=== PATIENT | female | born 1955 | race Caucasian/White ===

== ENCOUNTER 2022-06-07 08:02 | Outpatient (CLI) | payer MEDICARE, SELFPAY ==
[2022-06-07 14:25] LABS: Cholesterol* 176 mg/dL (90-199); HDL Cholesterol* 42 mg/dL (>=50); LDL Cholesterol Calculated 97 mg/dL (<100); Triglycerides* 183 mg/dL (40-149)
[2022-06-07 14:40] LABS: Albumin* 4.6 g/dL (3.3-5.0); Chloride* 103 mmol/L (96-114); Sodium* 136 mmol/L (135-149)
[2022-06-07 14:41] LABS: Potassium* 4.1 mmol/L (3.6-5.1)
[2022-06-07 14:43] LABS: Alkaline Phosphatase* 104 U/L (40-150); Aspartate Amino Transferase* 38 U/L (12-35); Bilirubin Total* 0.6 mg/dL (0.1-1.5); Blood Urea Nitrogen* 15 mg/dL (7-30); Carbon Dioxide* 20 mmol/L (20-32); Creatinine* 0.7 mg/dL (0.5-1.5); Estimated Glomerular Filt Rate 95 ml/min; Total Protein* 7.1 g/dL (6.0-8.3)
[2022-06-07 14:44] LABS: Alanine Aminotransferase* 47 U/L (4-35); Calcium* 9.5 mg/dL (8.4-10.6); Glucose* 148 mg/dL (60-115)
== END 2022-06-07 08:03 | disposition home or self-care (01) ==
PROVIDERS: PCP Physician Assistant Medical; Visit Provider Physician Assistant Medical
DX: E78.5 Hyperlipidemia, unspecified (principal); E03.9 Hypothyroidism, unspecified; I10 Essential (primary) hypertension; R79.89 Other specified abnormal findings of blood chemistry; R73.9 Hyperglycemia, unspecified
CPT/HCPCS: 80053; 80061; 84443

== ENCOUNTER 2022-06-29 07:38 | Outpatient (CLI) | payer MEDICARE, SELFPAY ==
--- OUTSIDE RECORDS SUMMARY | 2022-06-29 07:42 | XMS_ITS | Encounter Summary ---
:1955 Author Organization [facility] Address [address] [place] [address] Care Team Providers Name Role Phone No Ref-Primary, Physician Primary Care Provider [phone] Reason for Visit [facility] (Routine) - Closed Specialty Diagnoses / Procedures Referred By Contact Refer red To Contact Physical Therapist / Diagnoses Low back pain Cervicalgia back pain; neck pain; referral Dr. Marty Link; order to be faxed; [facility]; Lionel; mel [facility] referral exists to 09.22.2020 (ab) Marty Link PA-C Himmerick, Robert, Physical Therapy Procedures SPINE FOLLOW UP [facility] GOSIA MIRANDA [address] [place] [address] [place] [address] Phone: Fax: Referral ID Status Reason Start Date Expiration Date Visits Requ ested Visits Authorized [id number] Closed 11/03/2019 09/22/2020 20 18 Encounter Details Date Type Department Care Team Description 11/03/2019 Therapy Visit [facility] Anais Beauchamp, Bilateral low back pain without sciatica; Rehabilitation Services HARLEY Chowdhury Cervicalgia [place] [facility] [id number] [place] [address] [address] [facility] [place] [address] [phone] Social History Tobacco Use Types Packs/Day Years Used Date Never Assessed Sex Assigned at Date Recorded Not on file documented as of this encounter Progress Notes [place] Beauchamp, PT - 11/03/2019 9:00 AM CST DISCHARGE SUMMARY Annie Serrano was seen 2 times for evaluation and treatment. Patient did not return for further treatment and current status is unknown. Due to short treatment duration, no objective or functional changes were made. Please see goal flow sheet from episode noted date below and initial evaluation for further information. Patient is discharged from therapy and therapy episode is resolved as of 12/11/19. 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
--- OUTSIDE RECORDS SUMMARY | 2022-06-29 07:42 | XMS_ITS | Encounter Summary ---
:1955 Author Organization [facility] Address [address] [place] [address] Care Team Providers Name Role Phone No Ref-Primary, Physician Primary Care Provider [phone] Encounter Details Date Type Department Care Team Description 09/15/2019 Travel Social History Tobacco Use Types Packs/Day Years Used Date Never Assessed Sex Assigned at Date Recorded Not on file documented as of this encounter Plan of Treatment Not on filedocumented as of this encounter Visit Diagnoses Not on filedocumented in this encounter Care Teams Coater Associate Relationship Specialty Start Date End Date No Ref-Primary, Physician PCP - General 09/15/19 documented as of this encounter
--- OUTSIDE RECORDS SUMMARY | 2022-06-29 07:42 | XMS_ITS | Encounter Summary ---
:1955 Author Organization [facility] Address [address] [place] [address] Care Team Providers Name Role Phone No Ref-Primary, Physician Primary Care Provider [phone] Encounter Details Date Type Department Care Team Description 11/03/2019 Travel Social History Tobacco Use Types Packs/Day Years Used Date Never Assessed Sex Assigned at Date Recorded Not on file documented as of this encounter Plan of Treatment Not on filedocumented as of this encounter Visit Diagnoses Not on filedocumented in this encounter Care Teams Varnish Mixer Relationship Specialty Start Date End Date No Ref-Primary, Physician PCP - General 09/15/19 documented as of this encounter
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
--- OUTSIDE RECORDS SUMMARY | 2022-06-29 07:42 | XMS_ITS | Encounter Summary ---
:1955 Author Organization [facility] Address [address] [place] [address] Care Team Providers Name Role Phone No Ref-Primary, Physician Primary Care Provider [phone] Encounter Details Date Type Department Care Team Description 09/17/2019 Travel Social History Tobacco Use Types Packs/Day Years Used Date Never Assessed Sex Assigned at Date Recorded Not on file documented as of this encounter Plan of Treatment Not on filedocumented as of this encounter Visit Diagnoses Not on filedocumented in this encounter Care Teams Pipe Machine Operator Relationship Specialty Start Date End Date No Ref-Primary, Physician PCP - General 09/15/19 documented as of this encounter
--- OUTSIDE RECORDS SUMMARY | 2022-06-29 07:42 | XMS_ITS | Clinical Summary ---
:1955 Author Organization [facility] [place] [address] Care Team Providers Name Role Phone Miriam Darling MD Primary Care Provider [phone] Allergies Active Allergy Reactions Severity Noted Date Comments Penicillins 01/01/2006 Sulfa (Sulfonamide Antibiotics) 6 Medications Medication Sig Dispensed Refills Start Date End Date Status MULTIVITAMIN TAB take 1 tablet by 0 07/11/2009 Active oral route once daily with food FISH OIL 1,000 MG CAP 2 daily 0 07/11/2009 Active CALCIUM 500 MG TAB 0 07/11/2009 Active CPAP For home use: 1 0 07/11/2009 Activ e Pressure: 9 cmH2O with accessories Dx- 327.23 Length of Need: 99 nortriptyline (PAMELOR) 2 oral at 60 capsule 0 05/09/2015 Active 25 mg capsuleIndications: bedtime for 3 Major depressive weeks, then 1 disorder, recurrent cap at bedtime episode, in full for 3 weeks, remission (HC) then stop nortriptyline 50 mg Take 1 capsule 90 capsule 0 01/30/2016 Active capsuleIndications: Major by mouth at depressive disorder, bedtime. recurrent episode, in full remission (HC) nortriptyline (PAMELOR) Take 1 capsule 90 capsule 3 05/18/2016 Active 75 mg capsuleIndications: by mouth at Major depressive bedtime. disorder, recurrent episode, in full remission (HC) citalopram (CELEXA) 10 mg Take 1 tablet by 90 tablet 3 016 Active tabletIndications: Major mouth once depressive disorder, daily. recurrent episode, in full remission (HC) losartan (COZAAR) 100 mg Take 1 tablet by 90 tablet 3 05/18/20 16 Active tabletIndications: mouth once Essential hypertension daily. simvastatin (ZOCOR) 20 mg Take 1 tablet by 90 tablet 3 016 Active tabletIndications: Pure mouth once daily hypercholesterolemia in the evening. 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 Unspecified essential hypertension 04/08/2006 KNEE PAIN 04/14/2002 MIGRAINE - NOT INTRACTABLE 11/14/2001 EXCESSIVE MENSTRUATION 04/23/2001 DEPRESSIVE DISORDER, RECUR, FULL REMISSION 04/23/2001 HYPERCHOLESTEROLEMIA, PURE 07/18/2000 Resolved Problems Problem Noted Date Resolved Date ELEVATED BLOOD PRESSURE WITHOUT DIAGNOSIS OF HYPERTENSION 04/08/2006 Major depressive disorder, single episode in full remission 04/19/2008 Overview: 1995 Immunizations Name Administration Dates Next Due AMB Influenza, IIV3 (Age >=3 06/26/2013, 06/24/2012, 011, years)(Flu Clinic Only) 07/13/2010, 06/27/2009, 07/14/2008 AMB Influenza, IIV4 PF (=>6 mos 06/08/2014 Flulaval,Fluzone Fluarix)(Flu Clinic Only) Influenza A (H1N1), Inactivated (Age 0110/19/2009 >=3 Years) Influenza, IIV3 (Age >=3 years) 08/11/2007, 07/26/2006, 06/24, 07/09/2003, 07/08/2002, 07/23/2001 Influenza, IIV4 05/18/2016, 05/09/2015 Td (Age >=7 Years) 04/05/2005, 12/28/2003, 09/23/1993 Tdap 05/05/2012 Family History Medical History Relation Name Comments Cancer Father Liver and stomac h Other Father Renal calculi, g laucoma Arthritis Mother Diabetes Mother Hypertension Mother Other Mother Renal calculi, r enal failure on dialysis Hyperlipidemia Other 1 Grandparents, si blings Other Other 2 [place]'s in a grandparent Other Other 3 renal calculi in siblings Cancer-breast Sister Relation Name Status Comments Father Mother Other 1 Other 2 Other 3 Sister Social History Tobacco Use Types Packs/Day Years Used Date Never Smoker 0 Smokeless Tobacco: Never Used Tobacco Cessation: Counseling Given: Yes Comments: never Alcohol Use Standard Drinks/Week Comments Yes 0 (1 standard drink = 0.6 oz pure alcoho l) 2-3 drinks per week Alcohol Habits Answer Date Recorded How often do you have a drink containing alcohol? Not asked How many drinks containing alcohol do you have on a Not aske d typical day when you are drinking? How often do you have six or more drinks on one Not asked occasion? Comment: 2-3 drinks per week 05/18/2016 Sex Assigned at Date Recorded Not on file Obstetrics History Para Term AB IAB SAB Ectopic Multiple Living Live Births 3 3 3 0 0 6 3 Date Outcome GA Total Labor/2nd/3rd Weight Sex Delivery Anes PTL Ramonita A 1 A5 Name Clin Labor 12/06 Term M Vag Carmela Ld /1980 ng 10/17 Term F Vag Carmela Soraya /1982 ng 05/25 Term M Vag Carmela [place] /1986 ng Last Filed Vital Signs Vital Sign Reading Time Taken Comments Blood Pressure 135/83 05/18/2016 7:42 AM CDT Pulse 71 05/18/2016 7:42 AM CDT Temperature 36.2 ??C (97.2 ??F) 08/04/2004 12:00 AM DRUG ROOM CLERK Respiratory Rate 16 06/14/2004 12:00 AM CDT Oxygen Saturation 100% 05/18/2016 7:42 AM CDT Inhaled Oxygen Concentration - - Weight 71.1 kg (156 lb 12.8 oz) 05/18/2016 7:42 AM CDT Height 164.5 cm (5' 4.76) 05/18/2016 7:42 AM CDT Body Mass Index 26.28 05/18/2016 7:42 AM CDT Plan of Treatment Health Maintenance Due Date Last Done Comments COVID-19 vaccine series (#1) [birth year]14/1956 Zoster (shingles) series for age 1007/15/2005 50+ (1 of 2) BMI (ht and wt on same day) for 05/18/2017 05/18/2016 age 18+ Depression screening for age 12+ 05/18/2017 05/18/2016, 05/2016 Colonoscopy through age 75 06/06/2017 06/06/2007, 5 DEXA/DXA scan for age 65+ 2020 04/22/2007 Pneumococcal series for age 65+ (1 2020 - PCV) Mammogram for age 45-75 11/11/2020 11/11/2019, 11/10/2018, 11/07/2017, Additional history exists Lipids for age 45-75 05/18/2021 05/18/2016, 05/09/2015, 05/07/2014, Additional history exists Tetanus booster 05/05/2022 05/05/2012, 04/05/2005, 12/28/2003, Additional history exists Influenza for age 65+ 05/24/2022 05/18/2016, 05/09/2015, 06/08/2014, Additional history exists Tdap Completed 05/05/2012 Hepatitis C screening for age Completed 05/09/2015 18-79 Results Not on filefrom Last [address] [facility] (Home) TRL [phone] [place], [place] (Work) [address] Care Teams Compotype Operator Relationship Specialty Start Date End Date Miriam Darling MD PCP - General Family Practice 10/17/16 [address] [place] [address]
--- OUTSIDE RECORDS SUMMARY | 2022-06-29 07:42 | XMS_ITS | Clinical Summary ---
:1955 Author Organization [facility] Address [address] [place] [address] Care Team Providers Name Role Phone No Ref-Primary, Physician Primary Care Provider [phone] Resolved Problems Problem Noted Date Resolved Date Bilateral low back pain without sciatica 09/21/2019 12/11/2019 Cervicalgia 09/21/2019 12/11/2019 Social History Tobacco Use Types Packs/Day Years Used Date Never Assessed Sex Assigned at Date Recorded Not on file Plan of Treatment Health Maintenance Due Date Last Done Comments ADVANCE CARE PLANNING 1955 ANNUAL REVIEW OF HM ORDERS 1955 CT COLONOGRAPHY 1955 DEXA 1955 FIT-DNA (Cologuard) 1955 FIT 1955 FLEX SIG 1955 COVID-19 Vaccine (#1) 01[birth year]14/1956 COLONOSCOPY 1965 COLORECTAL CANCER SCREENING 1965 HEPATITIS C SCREENING 1973 DTAP/TDAP/TD IMMUNIZATION 1980 (1 - Tdap) LIPID 2000 ZOSTER IMMUNIZATION (1 of 2005 2) FALL RISK ASSESSMENT 2020 MEDICARE ANNUAL WELLNESS 2020 VISIT Pneumococcal Vaccine: 65+ 2020 Years (1 - PCV) MAMMO SCREENING 11/10/2020 11/10/2018 PHQ-2 (once per calendar 09/23/2021 year) INFLUENZA VACCINE (#1) 2022 05/18/2016, 05/09/2015, 06/08/2014, Additional history exists HEPATITIS B IMMUNIZATION Aged Out No long er eligible based on patient 's age to complete this topic IPV IMMUNIZATION Aged Out No longer eligi ble based on patient 's age to complete this topic MENINGITIS IMMUNIZATION Aged Out No longe r eligible based on patient 's age to complete this topic Insurance Payer Benefit Plan / Subscriber ID Effective Dates Phone Addre ss Type Group [employer] INDIVIDUAL [id number] 2019-Prese [phone] [address] [place] [address] Care Teams Welfare Investigator Relationship Specialty Start Date End Date No Ref-Primary, Physician PCP - General 09/15/19
--- NOTE | 2022-06-29 11:17 | W.ANESCHARGE ---
Anesthesia Charges Start Date/Time Anesthesia Start Date: 06/29/22 Anesthesia Start Time: 08:26 Stop Date/Time Anesthesia Stop Date: 06/29/22 Anesthesia Stop Time: 09:15 Summary Emergency: No
--- NOTE | 2022-06-29 11:57 | W.ANESCHARGE ---
Anesthesia Charges Start Date/Time Anesthesia Start Date: 06/29/22 Anesthesia Start Time: 08:26 Stop Date/Time Anesthesia Stop Date: 06/29/22 Anesthesia Stop Time: 09:15 Summary Emergency: No
== END 2022-06-29 07:39 | disposition home or self-care (01) ==
LOC: OP CLINIC 07:40
PROVIDERS: PCP Physician Assistant Medical; Visit Provider Internal Medicine
DX: Z12.11 Encounter for screening for malignant neoplasm of colon (principal); K57.30 Diverticulosis of large intestine without perforation or abscess without bleeding; Z86.010 Personal history of colon polyps
CPT/HCPCS: 00812; 45378; J2405; J2704

== ENCOUNTER 2023-01-03 15:25 | Outpatient (CLI) | payer MEDICARE, SELFPAY ==
--- NOTE | 2023-01-03 15:40 | CRLHL7_ITS ---
For Patients: As a result of the Century Cures Act, medical imaging exams and procedure reports are released immediately into your electronic medical record. You may view this report before your referring provider. If you have questions, please contact your health care provider. BILATERAL SCREENING MAMMOGRAM WITH COMPUTER-AIDED DETECTION AND TOMOSYNTHESIS TECHNIQUE: CC and MLO views were obtained. These mammographic images have been obtained using full-field digital technique. These mammographic images were interpreted with the benefit of computer-aided detection. Breast Tomosynthesis was used in this interpretation. COMPARISON FILM: 12/18/21, 11/11/20, 11/11/19. FINDINGS: There are scattered areas of fibroglandular density IMPRESSION: There is no radiographic evidence for malignancy. ASSESSMENT: BI-RADS Category 1: Negative RECOMMENDATION: Routine screening mammogram in 1 year. A lay language report of this examination will be provided to the patient. Florin Abebe M.D. Diagnostic Radiologist [email or web address] [place]/Dictated by: Florin Abebe MD @ 01/04/2023 8:25:00 AM (Electronically Signed)
== END 2023-01-03 15:26 | disposition home or self-care (01) ==
LOC: MAMMO 15:26
PROVIDERS: PCP Physician Assistant Medical; Visit Provider Physician Assistant Medical
DX: Z12.31 Encounter for screening mammogram for malignant neoplasm of breast (principal)
CPT/HCPCS: 77063; 77067

== ENCOUNTER 2023-06-13 08:29 | Outpatient (CLI) | payer MEDICARE, SELFPAY | END 2023-06-13 08:30 | disposition home or self-care (01) | LOC: NFLDREF 06-17 13:12 | PROVIDERS: PCP Physician Assistant Medical; Referring Provider Physician Assistant Medical; Visit Provider Physician Assistant Medical | DX: E03.9 Hypothyroidism, unspecified (principal); E78.2 Mixed hyperlipidemia; I10 Essential (primary) hypertension; R73.03 Prediabetes; R79.89 Other specified abnormal findings of blood chemistry | CPT/HCPCS: 80053; 80061; 84443 ==

== ENCOUNTER 2024-01-16 13:13 | Outpatient (CLI) | payer MEDICARE, SELFPAY ==
--- OUTSIDE RECORDS SUMMARY | 2024-01-16 13:16 | XMS_ITS | Clinical Summary ---
Author Name Unknown Organization [facility] Address [address] [place] [address] Care Team Providers Care Multimedia Developer Name Role Phone No Ref-Primary, Physician Primary Care Provider Resolved Problems Problem Noted Date Diagnosed Date Resolved Date Bilateral low back pain without sciatica 09/21/2019 12/11/2019 Cervicalgia 09/21/2019 12/11/2019 Social History Tobacco Use Types Packs/Day Years Used Date Smoking Tobacco: Never Assessed Sex and Gender Information Value Date Recorded Sex Assigned at Not on file Gender Identity Not on file Sexual Orientation Not on file Plan of Treatment Not on file Care Teams Multimedia Developer Relationship Specialty Start Date End Date No Ref-Primary, Physician PCP - General 09/15/19
--- OUTSIDE RECORDS SUMMARY | 2024-01-16 13:16 | XMS_ITS | Clinical Summary ---
Author Name Unknown Organization [facility] Address [employer], [place] [address] Care Team Providers Care Supervisor Byproducts Name Role Phone Miriam Darling MD Primary Care Provider Allergies Active Allergy Reactions Criticality Noted Date Comments Penicillins 01/01/2006 Sulfa (Sulfonamide Antibiotics) 12/22 Medications Medication Sig Dispensed Refills Start Date End Date Status MULTIVITAMIN TAB take 1 tablet by oral route once daily with food 0 9 Active FISH OIL 1,000 MG CAP 2 daily 0 9 Active CALCIUM 500 MG TAB 0 9 Active CPAP For home use: Pressure: 9 cmH2O with accessories Dx- 327.23 Length of Need: 99 1 0 9 Active nortriptyline (PAMELOR) 25 mg capsuleIndications:Major depressive disorder, recurrent episode, in full remission (HC) 2 oral at bedtime for 3 weeks, then 1 cap at bedtime for 3 weeks, then stop 60 capsule 0 5 Active nortriptyline 50 mg capsuleIndications:Major depressive disorder, recurrent episode, in full remission (HC) Take 1 capsule by mouth at bedtime. 90 capsule 0 6 Active nortriptyline (PAMELOR) 75 mg capsuleIndications:Major depressive disorder, recurrent episode, in full remission (HC) Take 1 capsule by mouth at bedtime. 90 capsule 3 6 Active citalopram (CELEXA) 10 mg tabletIndications:Major depressive disorder, recurrent episode, in full remission (HC) Take 1 tablet by mouth once daily. 90 tablet 3 6 Active losartan (COZAAR) 100 mg tabletIndications:Essenti al hypertension Take 1 tablet by mouth once daily. 90 tablet 3 6 Active simvastatin (ZOCOR) 20 mg tabletIndications:Pure hypercholesterolemia Take 1 tablet by mouth once daily in the evening. 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 Unspecified essential hypertension 04/08/2006 KNEE PAIN 04/14/2002 MIGRAINE - NOT INTRACTABLE 11/14/2001 EXCESSIVE MENSTRUATION 04/23/2001 DEPRESSIVE DISORDER, RECUR, FULL REMISSION 04/23 HYPERCHOLESTEROLEMIA, PURE 07/18/2000 Resolved Problems Problem Noted Date Diagnosed Date Resolved Date ELEVATED BLOOD PRESSURE WITH OUT DIAGNOSIS OF HYPERTENSION 04/14/2002 04/08/2006 Major depressive disorder, s gia episode in full remission 04/19/2008 Overview: 1995 Immunizations Name Administration Dates Next Due AMB Influenza, IIV3 (Age >=3 years)(Flu Clinic Only) 06/26/2013,06/24/2012,07/06/2011,2009,06/27/2009,07/14/2008 AMB Influenza, IIV4 PF (=>6 mos Flulaval,Fluzone Fluarix)(Flu Clinic Only) 06/08/2014 Influenza A (H1N1), Inactiva balbir (Age >=3 Years) 10/19/2009 Influenza, IIV3 (Age >=3 years) 08/11/20 07,07/26/2006,07/17/2005,2002,07/08/2002,07/23/2001 Influenza, IIV4 05/18/2016,05/09/2015 Td (Age >=7 Years) 04/05/2005,12/28/2003, 994 Tdap 05/05/2012 Family History Medical History Relation Name Comments Cancer Father Liver and stoma ch Other Father Renal calculi, glaucoma Arthritis Mother Diabetes Mother Hypertension Mother Other Mother Renal calculi, renal failure on dialysis Hyperlipidemia Other 1 Grandparents, siblings Other Other 2 Tad's in a grandparent Other Other 3 renal calculi i n siblings Cancer-breast Sister Relation Name Status Comments Father Mother Other 1 Other 2 Other 3 Sister Social History Tobacco Use Types Packs/Day Years Used Date Smoking Tobacco: Never Smokeless Tobacco: Never Tobacco Cessation:Counseling Given: Yes Comments:never Alcohol Use Standard Drinks/Week Comments Yes 0 (1 standard drink = 0.6 oz pur e alcohol) 2-3 drinks per week Sex and Gender Information Value Date Recorded Sex Assigned at Not on file Gender Identity Not on file Sexual Orientation Not on file Obstetrics History Para Term AB IAB SAB Ectopic Multiple Livin g Live Births 3 3 3 0 0 6 3 Date Outcome GA Total Labor Labor//3rd Weight Sex Delivery Anes PTL Ramonita A1 A5 Name Cl in 12/06 Term M Vag Carmela ng Ld 10/17 Term F Vag Carmela ng Soraya 05/25 Term M Vag Carmela ng [place] Last Filed Vital Signs Vital Sign Reading Time Taken Comments Blood Pressure 135/83 05/18/2016 7:42 AM CDT Pulse 71 05/18/2016 7:42 AM CDT Temperature 36.2 ??C (97.2 ??F) 08/04/2004 1 2:00 AM ACCOUNTING CONSULTANT Respiratory Rate 16 06/14/2004 12:0 0 AM CDT Oxygen Saturation 100% 05/18/2016 7:42 AM CDT Inhaled Oxygen Concentration - - Weight 71.1 kg (156 lb 12.8 oz) 05/18/2016 7:42 AM CDT Height 164.5 cm (5' 4.76) 05/18/2016 7:42 AM CD T Body Mass Index 26.28 05/18/2016 7:42 AM CDT Plan of Treatment Health Maintenance Due Date Last Done Comments Zoster (shingles) series for age 50+ (1 of 2) 2005 BMI (ht and wt on same day) for age 18+ 05/18/2017 05/18/2016 Depression screening for age 12+ 05/18/2017 05/18/20 16, 01/30/2016 Colonoscopy through age 75 06/06/2017 06/06/2007, DEXA/DXA scan for age 65+ 2020 04/22/2007 Pneumococcal series for age 65+ (1 of 1 - PCV) 2020 Mammogram for age 45-75 11/11/2020 11/11/19 20, 11/10/2018, 11/07/2017, Additional history exists Lipids for age 45-75 05/18/2021 05/18/2016, 05/09/2015, 05/07/2014, Additional history exists Tetanus booster 05/05/2022 05/05/2012, 03/23, 12/28/2003, Additional history exists COVID-19 vaccine series ( season) 2023 Influenza for age 65+ 05/24/2024 05/18/2016 , 05/09/2015, 06/08/2014, Additional history exists Tdap Completed 05/05/2012 Hepatitis C screening for ag e 18-79 Completed 05/09/2015 Procedures Procedure Name Priority Date/Time Associated Diagnosis Comments XR MAMMO JURGEN BILAT SCREEN Routine 11/11/2019 1:19 PM ACCOUNTING CONSULTANT Visit for screening mammogram LIPID PANEL W REFLEX MEASURED LDL Routine 05/18/2016 8:15 AM CDT HYPERCHOLESTEROLEMIA , PURE ANTI HCV Routine 05/09/2015 9:45 AM CDT Need for hepatitis C screening test XR DXA BONE DENSITY 2 SITES AXIAL Routine 04/22/2007 3:04 PM CDT Screening Osteoporosis COLONOSCOPY SCREENING Routine 04/05/2005 12:37 PM CDT from Last 3 Months or Most Recently Relevant to Health Maintenance Results * XR MAMMO JURGEN BILAT SCREEN (11/11/2019 1:19 PM ACCOUNTING CONSULTANT) Anatomical Region Laterality Modality BREASTS, Breast Left, Breast Right Bilateral Mammography Impressions 11/12/2019 4:08 PM ACCOUNTING CONSULTANT ??There is no radiographic evidence for malignancy. ??Recommend annual mammograms. A lay language report of this examination will be provided to the patient. MAMMOGRAM ASSESSMENT: ??ACR 1 Negative Narrative 11/12/2019 4:08 PM ACCOUNTING CONSULTANT XR MAMMO JURGEN BILAT SCREEN [[id number]] CLINICAL HISTORY: ??This is an asymptomatic 64 y.o. patient. INDICATION FOR EXAM: Mammogram Screening. TECHNIQUE: CC & MLO views were obtained. ??This digital study was evaluated with the assistance of Computer-Aided Detection. Breast Tomosynthesis was used in interpretation. COMPARISON FILM: Yes 11/10/18 [facility] 11/07/17 [facility] FINDINGS: ??Mammographically, the breast tissue has scattered fibroglandular densities. ??There are no dominant masses, suspicious micro calcifications or areas of architectural distortion. Marty Link PA-C MAMMO * (ABNORMAL) LIPID PANEL W REFLEX MEASURED LDL (05/18/2016 8:15 AM CDT) CHOLESTEROL,TOTAL 192 100 - 199 mg/dL 05/18/2016 4:16 PM CDT [facility] TRIGLYCERIDES 106 <150 mg/dL 05/18/2016 4:16 PM CDT [facility] HDL CHOLESTEROL 42 >40 mg/dL 05/18/2016 4:16 PM CDT [facility] NON-HDL CHOLESTEROL 150(H) <145 mg/dl 05/18/2016 4:16 PM CDT [facility] CHOL/HDL RATIO 4.57(H) <4.50 05/18/2016 4:16 PM CDT [facility] LDL CHOLESTEROL 129 <=130 mg/dL 05/18/2016 4:16 PM CDT [facility] PATIENT STATUS FASTING 05/18/2016 4:16 PM CDT [facility] Blood BLOOD SPECIMEN / Unknown Venipuncture / Unknown 05/18/2016 8:15 AM CDT 05/18/2016 8:15 AM CDT Miriam Darling MD CHEMISTRY [facility] [address] [place] [address], [place] * ANTI HCV [19120.2] (05/09/2015 9:45 AM CDT) HEPATITIS C ANTIBODY Non-Reacti ve Non-Reacti ve 05/09/2015 5:29 PM CDT [facility] Blood specimen (specimen) BLOOD SPECIMEN / Unknown Venipuncture / Unknown 05/09/2015 9:45 AM CDT 05/09/2015 9:45 AM CDT Narrative [facility] - 05/09/2015 5:29 PM CDT Antibodies to HCV not detected; does not exclude the possibility of exposure to HCV. Nicol Casillas MD SEND OUTS Performing Organization Address City/[facility]/ZIP Co de Phone Number [facility] [address] [place] [address], [place] * XR DEXA BONE DENSITY 2 SITES (04/22/2007 3:04 PM CDT) Anatomical Region Laterality Modality Spine, HIPS, HIPL, HIPR Other 04/22/2007 3:04 PM CDT Narrative 04/24/2007 1:54 PM CDT Please see scanned document for results of this study. Procedure Note Payton Burnett D - 05/07/2007 Please see scanned document for results of this study. Nicol Casillas MD DEXA * COLONOSCOPY SCREENING (04/05/2005 12:37 PM CDT) COLONOSCOPY Recommended 04/05/2005 12:3 7 PM CDT Narrative 04/07/2005 4:40 PM CDT Ordered by an unspecified provider. Other Clinical Staff GI PROCEDURE ORD from Last 3 Months or Most Recently Relevant to Health Maintenance Care Teams Supervisor Byproducts Relationship Specialty [place] [address] [place] [address] PCP - General Family Practice 10/17/16
--- OUTSIDE RECORDS SUMMARY | 2024-01-16 13:16 | XMS_ITS | Referral Summary ---
Author Name Unknown Organization [place] Address [address] [place] [address] Care Team Providers Care Tumbling Barrel Painter Name Role Phone No Ref-Primary, Physician Primary [...] of Treatment Not on file Care Teams Tumbling Barrel Painter Relationship Specialty Start Date End Date No Ref-Primary, Physician PCP - General 09/15/19
--- NOTE | 2024-01-16 14:00 | MM_ITS ---
Patient: SLOAN AMIN Facility:?[facility] Patient ID:?[id number] Site Patient ID:?[id number]. Site :?[id number] Study:?XRay-Breast Bilateral 3D W/CAD-01/16/2024 2:01:43 PM Ordering Physician:BECKY LINDA Final Report: BILATERAL SCREENING MAMMOGRAM WITH COMPUTER-AIDED DETECTION AND TOMOSYNTHESIS TECHNIQUE: CC and MLO views were obtained. These mammographic images have been obtained using full-field digital technique. These mammographic images were interpreted with the benefit of computer-aided detection. Breast Tomosynthesis was used in this interpretation. COMPARISON FILM: 01/03/23, 12/08/21, 11/11/20. FINDINGS: There are scattered areas of fibroglandular density. IMPRESSION: There is no radiographic evidence for malignancy. ASSESSMENT: BI-RADS Category 1: Negative RECOMMENDATION: Routine screening mammogram in 1 year. A lay language report of this examination will be provided to the patient. Florin Abebe M.D. Diagnostic Radiologist [facility] [email or web address] DSM/sp R& Transcribed: 3:06 p.m. SP/Dictated by: Florin Abebe MD @ 01/20/2024 11:54:00 AM Signed by:?Florin Abebe MD @01/20/2024 3:21:01 PM (Electronic Signature)
== END 2024-01-16 13:14 | disposition home or self-care (01) ==
LOC: MAMMO 13:14
PROVIDERS: PCP Physician Assistant Medical; Visit Provider Physician Assistant Medical
DX: Z12.31 Encounter for screening mammogram for malignant neoplasm of breast (principal)
CPT/HCPCS: 77063; 77067

== ENCOUNTER 2024-01-16 13:36 | Outpatient (CLI) | payer MEDICARE, SELFPAY ==
--- NOTE | 2024-01-16 13:30 | XR_ITS ---
Patient: SLOAN AMIN Facility:?[facility] Patient ID:?[id number] Site Patient ID:?[id number]. Site :?[id number] Study:?DEXA-Bone Density -01/16/2024 2:08:08 PM Ordering Physician:ALEXEI Final Report: DXA BONE MINERAL DENSITY STUDY Reason for exam: Asymptomatic menopausal state. Current height (in): 65.0. Weight (lb): 195.0. Menopause age: 50. Ethnicity: White. 1. Have you had a previous hip or vertebral fracture? No. 2. Have you had any fractures during your adult life which did not result from significant trauma (e.g., auto accident)? No. 3. Did either of your parents have a hip fracture? No. 4. Do you smoke? No. 5. Have you ever taken Glucocorticoids? No. 6. Do you have rheumatoid arthritis? No. 7. Do you have secondary osteoporosis? No. 8. Do you drink 3 or more alcoholic drinks per day? No. 9. Are you being treated for osteoporosis? No. 10. Have you ever taken any of the following medications: Actonel, Evista, Fosamax, Miacalcin, Reclast, Boniva, Forteo, HRT (i.e. estrogen/hormone therapy), Protelos, Prolia, Vitamin D, Calcium, other ? please specify. ANSWER: Yes, vitamin D, calcium. 11. Do you have any of the following medical conditions: Anorexia or bulimia, asthma or emphysema, end stage renal disease, hyperparathyroidism, any seizure disorders, cancer, inflammatory bowel diseases, hysterectomy, other ? please specify. ANSWER: No. 12. What was your maximum height (inches)? 66. 13. Do you perform weight bearing exercise regularly? No. 14. Do you regularly consume dairy products? Yes. 15. Do you drink caffeinated beverages? Yes. 16. At what age did your period start? 14. 17. Are you premenopausal? No. 18. How many full term pregnancies have you had? 3. 19. Have you ever missed your period for more than 6 months in a row (not including or menopause)? No. TECHNIQUE: Bone mineral density study was performed using the [employer]. FINDINGS: The results of the study expressed as bone mineral density (BMD) are as follows: Lumbar spine L1 to L4: BMD: 0.843 g/cm2. T-score: -1.9. Z-score: 0.1. Neck Left: BMD: 0.646 g/cm2. T-score: -1.8. Z-score: -0.1. Right: BMD: 0.637 g/cm2. T-score: -1.9. Z-score: -0.2. Total Left: BMD: 0.827 g/cm2. T-score: -0.9. Z-score: 0.5. Right: BMD: 0.861 g/cm2. T-score: -0.7. Z-score: 0.8. IMPRESSION: Osteopenia. *Comparison exams done prior to 02/2020 were performed on different unit, [employer]. COMPARISON: Compared with scan of 06/14/2021, the bone mineral density has decreased by 3.1 percent at the spine and increased by 0.6 percent at the hip. FRAX 10-year Fracture Risk Major Osteoporotic Fracture: 10 percent Hip Fracture: 1.6 percent Reported Risk Factors: [place] () Neck BMD=0.637, BMI=32.4 ROE ABRAHAM M.D. MICHAELI:kate D& [email or web address] be/Dictated by: Roe Abraham MD @ 01/17/2024 12:53:00 PM Signed by:?Roe Abraham MD @01/22/2024 4:16:04 PM (Electronic Signature)
--- OUTSIDE RECORDS SUMMARY | 2024-01-16 13:37 | XMS_ITS | Clinical Summary ---
Author Name Unknown Organization [facility] Address [place], [place] [address] Care Team Providers Care Supervisor Blood Name Role Phone Miriam Darling MD Primary [...] Other 1 Grandparents, siblings Other Other 2 Bath's in a grandparent Other Other 3 renal [...] ??C (97.2 ??F) 08/04/2004 1 2:00 AM BOTTLER Respiratory Rate 16 06/14/2004 12:0 0 AM [...] JURGEN BILAT SCREEN Routine 11/11/2019 1:19 PM BOTTLER Visit for screening mammogram LIPID PANEL W [...] MAMMO JURGEN BILAT SCREEN (11/11/2019 1:19 PM BOTTLER) Anatomical Region Laterality Modality BREASTS, Breast Left, Breast Right Bilateral Mammography Impressions 11/12/2019 4:08 PM BOTTLER ??There is no radiographic evidence for malignancy. ??Recommend annual mammograms. A lay language report of this examination will be provided to the patient. MAMMOGRAM ASSESSMENT: ??ACR 1 Negative Narrative 11/12/2019 4:08 PM BOTTLER XR MAMMO JURGEN BILAT SCREEN [[id number]] CLINICAL HISTORY: ??This is an asymptomatic 64 y.o. patient. INDICATION FOR EXAM: Mammogram Screening. TECHNIQUE: CC & MLO views were obtained. ??This digital study was evaluated with the assistance of Computer-Aided Detection. Breast Tomosynthesis was used in interpretation. COMPARISON FILM: Yes 11/10/18 [facility] 11/07/17 [facility] FINDINGS: ??Mammographically, the breast tissue has scattered fibroglandular densities. ??There are no dominant masses, suspicious micro calcifications or areas of architectural distortion. Marty Link PA-C MAMMO * (ABNORMAL) LIPID PANEL W REFLEX MEASURED LDL (05/18/2016 8:15 AM CDT) CHOLESTEROL,TOTAL 192 100 - 199 mg/dL 05/18/2016 4:16 PM CDT [facility] TRIGLYCERIDES 106 <150 mg/dL 05/18/2016 4:16 PM CDT [facility] HDL CHOLESTEROL 42 >40 mg/dL 05/18/2016 4:16 PM CDT [facility] NON-HDL CHOLESTEROL 150(H) <145 mg/dl 05/18/2016 4:16 PM CDT [facility] CHOL/HDL RATIO 4.57(H) <4.50 05/18/2016 4:16 PM CDT [facility] LDL CHOLESTEROL 129 <=130 mg/dL 05/18/2016 4:16 PM CDT [facility] PATIENT STATUS FASTING 05/18/2016 4:16 PM CDT [facility] [employer] Blood BLOOD SPECIMEN / Unknown Venipuncture / Unknown 05/18/2016 8:15 AM CDT 05/18/2016 8:15 AM CDT Miriam Darling MD [facility] [address] [place] [address], [place] * ANTI HCV [[id number]] (05/09/2015 9:45 AM CDT) HEPATITIS C ANTIBODY Non-Reacti ve Non-Reacti ve 05/09/2015 5:29 PM CDT [facility] Blood specimen (specimen) BLOOD SPECIMEN / Unknown Venipuncture / Unknown 05/09/2015 9:45 AM CDT 05/09/2015 9:45 AM CDT Narrative [facility] - 05/09/2015 5:29 PM CDT Antibodies to HCV not detected; does not exclude the possibility of exposure to HCV. Nicol Casillas MD SEND OUTS Performing Organization Address City/[facility]/ZIP Co de Phone Number [facility] [address] [place] [address], [place] * XR DEXA BONE DENSITY 2 [...] Relevant to Health Maintenance Care Teams Supervisor Blood Relationship Specialty [place] [address] [place] [address] PCP - General Family Practice 10/17/16
--- OUTSIDE RECORDS SUMMARY | 2024-01-16 13:37 | XMS_ITS | Clinical Summary ---
Author Name Unknown Organization [place] Address [address] [place] [address] Care Team Providers Care Physician Practice Manager Name Role Phone No Ref-Primary, Physician Primary [...] of Treatment Not on file Care Teams Physician Practice Manager Relationship Specialty Start Date End Date No Ref-Primary, Physician PCP - General 09/15/19
--- OUTSIDE RECORDS SUMMARY | 2024-01-16 13:37 | XMS_ITS | Referral Summary ---
Author Name Unknown Organization [place] Address [address] [place] [address] Care Team Providers Care Network Manager Name Role Phone No Ref-Primary, Physician [...] of Treatment Not on file Care Teams Network Manager Relationship Specialty Start Date End Date No Ref-Primary, Physician PCP - General 09/15/19
== END 2024-01-16 13:37 | disposition home or self-care (01) ==
LOC: RAD 13:36
PROVIDERS: PCP Physician Assistant Medical; Visit Provider Physician Assistant Medical
DX: Z12.31 Encounter for screening mammogram for malignant neoplasm of breast (principal); Z78.0 Asymptomatic menopausal state; M85.89 Other specified disorders of bone density and structure, multiple sites
CPT/HCPCS: 77063; 77067; 77080

== ENCOUNTER 2024-06-25 09:02 | Outpatient (CLI) | payer MEDICARE, SELFPAY ==
--- OUTSIDE RECORDS SUMMARY | 2024-06-26 08:43 | XMS_ITS | Referral Summary ---
Author Organization [place] Address [address] [place] [address]. [place] [address] Care Team Providers Care Autocad Electrical Designer Name Role Phone No Ref-Primary, Physician Primary [...] of Treatment Not on file Care Teams Autocad Electrical Designer Relationship Specialty Start Date End Date No Ref-Primary, Physician PCP - General 09/15/19
--- OUTSIDE RECORDS SUMMARY | 2024-06-26 08:43 | XMS_ITS | Clinical Summary ---
Author Organization [facility] Address [place], [place] [address] Care Team Providers Care Turn Machine Operator Name Role Phone Miriam Darling MD Primary [...] s gia episode in full remission 04/19/2008 Overview (04/19/2008): 1995 Immunizations Name Administration Dates Next Due [...] Other 1 Grandparents, siblings Other Other 2 Ethan's in a grandparent Other Other 3 renal [...] 6 3 Date Outcome GA Total Labor Labor/2nd/3rd Weight Sex Type Anes PTL Ramonita A1 A5 Name Clin 12/06 Term M Vag Living Ld 10/17 Term F Vag Living Soraya 05/25 Term M Vag Living Linwood Last Filed Vital Signs Vital Sign Reading Time Taken Comments Blood Pressure 135/83 05/18/2016 7:42 AM CDT Pulse 71 05/18/2016 7:42 AM CDT Temperature 36.2 ??C (97.2 ??F) 08/04/2004 1 2:00 AM FURNACE WORKER Respiratory Rate 16 06/14/2004 12:0 0 AM [...] history exists COVID-19 vaccine series ( season) 2024 Influenza for age 65+ 05/24/2024 05/18/2016 , 05/09/2015, 06/08/2014, Additional history exists Tdap Completed 05/05/2012 Hepatitis C screening for ag e 18-79 Completed 05/09/2015 Procedures Procedure Name Priority Date/Time Associated Diagnosis Comments XR MAMMO JURGEN BILAT SCREEN Routine 11/11/2019 1:19 PM FURNACE WORKER Visit for screening mammogram LIPID PANEL W [...] MAMMO JURGEN BILAT SCREEN (11/11/2019 1:19 PM FURNACE WORKER) Anatomical Region Laterality Modality BREASTS, Breast Left, Breast Right Bilateral Mammography Impressions 11/12/2019 4:08 PM FURNACE WORKER ??There is no radiographic evidence for malignancy. ??Recommend annual mammograms. A lay language report of this examination will be provided to the patient. MAMMOGRAM ASSESSMENT: ??ACR 1 Negative Narrative 11/12/2019 4:08 PM FURNACE WORKER XR MAMMO JURGEN BILAT SCREEN [[id number]] CLINICAL HISTORY: ??This is an asymptomatic 64 y.o. patient. INDICATION FOR EXAM: Mammogram Screening. TECHNIQUE: CC & MLO views were obtained. ??This digital study was evaluated with the assistance of Computer-Aided Detection. Breast Tomosynthesis was used in interpretation. COMPARISON FILM: Yes 11/10/18 [facility] 11/07/17 [facility] FINDINGS: ??Mammographically, the breast tissue has scattered fibroglandular densities. ??There are no dominant masses, suspicious micro calcifications or areas of architectural distortion. Marty Link PA-C MAMMO * (ABNORMAL) LIPID PANEL W REFLEX MEASURED LDL (05/18/2016 8:15 AM CDT) CHOLESTEROL,TOTAL 192 100 - 199 mg/dL 05/18/2016 4:16 PM CDT [facility] TRIGLYCERIDES 106 <150 mg/dL 05/18/2016 4:16 PM CDT [facility] HDL CHOLESTEROL 42 >40 mg/dL 05/18/2016 4:16 PM CDT [facility] NON-HDL CHOLESTEROL 150(H) <145 mg/dl 05/18/2016 4:16 PM CDT [facility] CHOL/HDL RATIO 4.57(H) <4.50 05/18/2016 4:16 PM CDT [facility] LDL CHOLESTEROL 129 <=130 mg/dL 05/18/2016 4:16 PM CDT [facility] PATIENT STATUS FASTING 05/18/2016 4:16 PM CDT [facility] Blood BLOOD SPECIMEN / Unknown Venipuncture / Unknown 05/18/2016 8:15 AM CDT 05/18/2016 8:15 AM CDT Miriam Darling MD CHEMISTRY [facility] [address] [place] [address], [place] * ANTI HCV [65024.2] (05/09/2015 9:45 AM CDT) HEPATITIS C ANTIBODY Non-Reacti ve Non-Reacti ve 05/09/2015 5:29 PM CDT [facility] Blood specimen (specimen) BLOOD SPECIMEN / Unknown Venipuncture / Unknown 05/09/2015 9:45 AM CDT 05/09/2015 9:45 AM CDT Narrative [facility] - 05/09/2015 5:29 PM CDT Antibodies to HCV not detected; does not exclude the possibility of exposure to HCV. Nicol Casillas MD SEND OUTS Performing Organization Address City/[facility]/ZIP Co de Phone Number [facility] [address] [place] [address], [place] * XR DEXA BONE DENSITY 2 [...] Recently Relevant to Health Maintenance Care Teams Turn Machine Operator Relationship Specialty [place] [id number] [place] [address] PCP - General Family Practice 10/17/16
--- OUTSIDE RECORDS SUMMARY | 2024-06-26 08:43 | XMS_ITS | Clinical Summary ---
Author Organization [facility] Address [address] [place] [address]. [place] [address] Care Team Providers Care Master Chef Name Role Phone No Ref-Primary, Physician Primary [...] of Treatment Not on file Care Teams Master Chef Relationship Specialty Start Date End Date No Ref-Primary, Physician PCP - General 09/15/19
== END 2024-06-25 09:03 | disposition home or self-care (01) ==
LOC: NFLDREF 06-26 08:41
PROVIDERS: PCP Physician Assistant Medical; Referring Provider Physician Assistant Medical; Visit Provider Physician Assistant Medical
DX: R73.03 Prediabetes (principal); I10 Essential (primary) hypertension; E03.9 Hypothyroidism, unspecified; E78.2 Mixed hyperlipidemia; R79.89 Other specified abnormal findings of blood chemistry
CPT/HCPCS: 80053; 80061; 84443

== ENCOUNTER 2025-01-28 11:14 | Outpatient (CLI) | payer MEDICARE, SELFPAY ==
--- NOTE | 2025-01-28 11:30 | CRLHL7_ITS ---
For Patients: As a result of the Century Cures Act, medical imaging exams and procedure reports are released immediately into your electronic medical record. You may view this report before your referring provider. If you have questions, please contact your health care provider. INDICATION: BILATERAL SCREENING MAMMOGRAM, ASYMPTOMATIC 69 Y/O FEMALE COMPARISON: 01/16/24, 01/03/23, 12/18/21 TECHNIQUE: CC and MLO views were obtained. These mammographic images have been obtained using full-field digital technique. These mammographic images were interpreted with the benefit of computer aided detection and tomosynthesis. BREAST COMPOSITION: There are scattered areas of fibroglandular density. FINDINGS: No suspicious findings. ASSESSMENT: BI-RADS 1 Negative RECOMMENDATION: Annual screening mammogram. A lay language report of this examination will be provided to the patient. Dictated by: Florin Abebe MD @ 01/29/2025 09:01:37 (Electronically Signed)
== END 2025-01-28 11:15 | disposition home or self-care (01) ==
LOC: MAMMO 11:15
PROVIDERS: PCP Physician Assistant Medical; Visit Provider Physician Assistant Medical
DX: Z12.31 Encounter for screening mammogram for malignant neoplasm of breast (principal)
CPT/HCPCS: 77063; 77067

== ENCOUNTER 2025-07-01 08:57 | Outpatient (CLI) | payer MEDICARE, SELFPAY | END 2025-07-01 08:58 | disposition home or self-care (01) | LOC: NFLDREF 23:27 | PROVIDERS: PCP Physician Assistant Medical; Referring Provider Physician Assistant Medical; Visit Provider Physician Assistant Medical | DX: E11.9 Type 2 diabetes mellitus without complications (principal); I10 Essential (primary) hypertension; E03.9 Hypothyroidism, unspecified; E78.2 Mixed hyperlipidemia | CPT/HCPCS: 80053; 80061; 82043; 82570; 84443 ==